=== PATIENT | male | born 1945 | race Caucasian/White ===

== ENCOUNTER 2024-04-22 18:47 | Inpatient (IN) | payer OTHER, MEDICARE ==
[2024-04-22 19:54] VITALS: BMI 29.2
[2024-04-22] MEDS ORDERED: Ondansetron ODT 4 MG TAB PO PRN (21:20)
[2024-04-22] MEDS ORDERED: Calcium Carbonate 500 MG ChewTAB PO PRN (21:20)
[2024-04-22] MEDS ORDERED: Ondansetron PF 4 MG/2 ML Vial IVP PRN (21:20)
[2024-04-22] MEDS ORDERED: Acetaminophen 325 MG TAB PO PRN (21:20)
[2024-04-22] MEDS ORDERED: Senokot S 8.6-50 MG TAB PO PRN (21:20)
[2024-04-22] MEDS ORDERED: Acetaminophen 650 MG Suppository PR PRN (21:20)
[2024-04-22] MEDS: Sodium Chloride 0.9% 1,000 ML IV SCH (22:57)
[2024-04-23] MEDS: Levothyroxine Sodium 25 MCG TAB PO SCH (06:43)
[2024-04-23 07:34] LABS: #Basophils Less than 0.03 10x3/uL (0.0-0.2); %Basophils 0.2 % (0.0-1.0); %Eosinophils 4.1 % (0.0-10.0); %Lymphocytes 16.6 % (21.0-51.0); %Monocytes 11.4 % (0.0-10.0); %Neutrophils 67.2 % (42.0-75.0); Hematocrit 38.6 % (42.0-52.0); Hemoglobin 13.1 g/dL (14.0-18.0); Mean Corpuscular HGB CONC 33.9 g/dL (32.0-36.0); Mean Corpuscular Hemoglobin 29.3 pg (27.0-31.0); Mean Corpuscular Volume 86.4 fL (78.0-98.0); Mean Platelet Volume 11.6 fL (7.4-10.4); Platelet Count 185 10x3/uL (130-400); RBC Distribution Width 13.9 % (11.5-14.5); Red Blood Cell (RBC) Count 4.47 mill/uL (4.70-6.10)
[2024-04-23 07:54] LABS: Anion Gap 17 mmol/L (10-20); BUN (Urea Nitrogen) 84 mg/dL (8.4-25.7); Calc. Creatinine Clearance 23 mL/min (70-130); Calcium 8.2 mg/dL (7.8-10.44); Carbon Dioxide 15 mmol/L (23-31); Chloride 114 mmol/L (98-107); Estimated GFR 17; Glucose 92 mg/dL (83-110); Potassium 3.7 mmol/L (3.5-5.1); Sodium 142 mmol/L (136-145)
[2024-04-23] MEDS: Aspirin 81 mg Enteric Coated Tablet PO SCH (09:22)
[2024-04-23] MEDS: Clopidogrel Bisulfate 75 MG TAB PO SCH (09:22)
[2024-04-23] MEDS: Atenolol 25 MG TAB PO SCH (09:23)
[2024-04-23] MEDS: Famotidine 20 MG TAB PO SCH (09:23)
[2024-04-23] MEDS: Sodium Bicarbonate Tab 325 MG TAB PO SCH (09:23)
[2024-04-23] MEDS: Atorvastatin Calcium 20 MG TAB PO SCH (09:23)
[2024-04-23] MEDS: Sodium Bicarbonate 150 MEQ in Sterile Water 1,000 ML IV SCH (10:51)
[2024-04-23 12:20] LABS: Creatinine, Urine 75.98 mg/dL (63-166)
[2024-04-23 14:32] VITALS: BMI 29.2
[2024-04-23] MEDS: cefTRIAXone\\ROCEPHIN 1 GM in Sodium Chloride 0.9% 100 ML IVPB SCH (16:12)
[2024-04-23] MEDS: Tamsulosin HCl 0.4 MG CAP PO SCH (20:15)
[2024-04-24 06:21] LABS: #Basophils Less than 0.03 10x3/uL (0.0-0.2); %Basophils 0.3 % (0.0-1.0); %Eosinophils 4.6 % (0.0-10.0); %Lymphocytes 20.4 % (21.0-51.0); %Monocytes 10.6 % (0.0-10.0); %Neutrophils 63.5 % (42.0-75.0); Hematocrit 36.4 % (42.0-52.0); Hemoglobin 12.2 g/dL (14.0-18.0); Mean Corpuscular HGB CONC 33.5 g/dL (32.0-36.0); Mean Corpuscular Volume 86.5 fL (78.0-98.0); Mean Platelet Volume 10.8 fL (7.4-10.4); Platelet Count 197 10x3/uL (130-400); RBC Distribution Width 13.9 % (11.5-14.5); Red Blood Cell (RBC) Count 4.21 mill/uL (4.70-6.10)
[2024-04-24 06:41] LABS: Albumin 2.1 g/dL (3.4-4.8); Anion Gap 11 mmol/L (10-20); BUN (Urea Nitrogen) 38 mg/dL (8.4-25.7); BUN/Creatinine Ratio 31.15; Calc. Creatinine Clearance 64 mL/min (70-130); Calcium 7.9 mg/dL (7.8-10.44); Carbon Dioxide 28 mmol/L (23-31); Chloride 108 mmol/L (98-107); Estimated GFR 60; Glucose 101 mg/dL (83-110); Phosphorus 2.1 mg/dL (2.3-4.7); Potassium 3.5 mmol/L (3.5-5.1); Sodium 143 mmol/L (136-145)
[2024-04-24] MEDS: Famotidine 20 MG TAB PO SCH (09:13)
[2024-04-24] MEDS: PHOS-NAK 1 PKT PACK PO SCH (11:11)
[2024-04-24 15:20] VITALS: BP 131/65; TEMP 98.3
== END 2024-04-24 15:08 | disposition home or self-care (01) | DRG 683 ==
LOC: T4-A 18:47
PROVIDERS: ADMIT Family Medicine; ATTEND Hospitalist
DX: N17.9 Acute kidney failure, unspecified (principal); E87.20 Acidosis, unspecified; R33.9 Retention of urine, unspecified; I10 Essential (primary) hypertension; I25.10 Atherosclerotic heart disease of native coronary artery without angina pectoris; Z79.82 Long term (current) use of aspirin; Z79.899 Other long term (current) drug therapy; I25.2 Old myocardial infarction; E78.5 Hyperlipidemia, unspecified; E03.9 Hypothyroidism, unspecified; Z90.49 Acquired absence of other specified parts of digestive tract; Z95.1 Presence of aortocoronary bypass graft; Z87.891 Personal history of nicotine dependence; N32.0 Bladder-neck obstruction; E83.39 Other disorders of phosphorus metabolism; N13.30 Unspecified hydronephrosis; N28.1 Cyst of kidney, acquired
CPT/HCPCS: 36415; 76770; 80048; 80069; 82570; 84156; 85025; A4217; J0696; J7030

== ENCOUNTER 2024-07-08 13:27 | Outpatient (CLI) | payer OTHER ==
[2024-07-08 15:06] LABS: #Basophils 0.04 10x3/uL (0.0-0.2); %Basophils 0.5 % (0.0-1.0); %Lymphocytes 23.4 % (21.0-51.0); %Monocytes 8.8 % (0.0-10.0); %Neutrophils 63.2 % (42.0-75.0); Hematocrit 43.8 % (42.0-52.0); Hemoglobin 14.2 g/dL (14.0-18.0); Mean Corpuscular HGB CONC 32.4 g/dL (32.0-36.0); Mean Corpuscular Hemoglobin 28.2 pg (27.0-31.0); Mean Corpuscular Volume 86.9 fL (78.0-98.0); Mean Platelet Volume 10.6 fL (7.4-10.4); Platelet Count 269 10x3/uL (130-400); Red Blood Cell (RBC) Count 5.04 mill/uL (4.70-6.10)
[2024-07-08 15:20] LABS: PTT 28.2 sec (22.9-36.1); Prothrombin Time 13.2 sec (12.0-14.7)
[2024-07-08 15:33] LABS: Anion Gap 10 mmol/L (10-20); BUN (Urea Nitrogen) 15 mg/dL (8.4-25.7); Calc. Creatinine Clearance 0 mL/min (70-130); Carbon Dioxide 24 mmol/L (23-31); Chloride 106 mmol/L (98-107); Estimated GFR 64; Glucose 88 mg/dL (83-110); Potassium 3.9 mmol/L (3.5-5.1); Sodium 136 mmol/L (136-145)
== END 2024-07-08 13:28 | disposition home or self-care (01) ==
LOC: LABBT 13:27
PROVIDERS: ATTEND Urology
DX: Z01.818 Encounter for other preprocedural examination (principal); C67.8 Malignant neoplasm of overlapping sites of bladder
CPT/HCPCS: 80048; 85025; 85610; 85730; 87086

== ENCOUNTER 2024-07-19 07:16 | Day surgery (SDC) | payer OTHER ==
[2024-07-08 14:10] VITALS: BMI 27.8
[~2024-07-19 07:16] MED LIST: mitoMYcin 40 MG in Sterile Water 20 ML I-VESIC SCH
[2024-07-19] MEDS ORDERED: mitoMYcin 40 MG in Sterile Water 20 ML I-VESIC SCH (07:45)
[2024-07-19] MEDS ORDERED: PROPOFOL 20 ML ONE (11:43)
[2024-07-19] MEDS ORDERED: fentaNYL PF 100 MCG/2 ML SYRINGE ONE ×2 (11:43→13:23)
[2024-07-19] MEDS ORDERED: Rocuronium Bromide 10 MG/ML (10ML VIAL) ONE (11:44)
[2024-07-19] MEDS ORDERED: Lidocaine 2% PF 5 ML VIAL ONE (11:44)
[2024-07-19] MEDS ORDERED: LevoFLOXacin D5W 500 mg (100 mL) BAG ONE (12:15)
[2024-07-19] MEDS ORDERED: Ondansetron PF 4 MG/2 ML Vial ONE (12:41)
[2024-07-19] MEDS ORDERED: Dexamethasone 4 mg/ml Vial ONE (12:41)
[2024-07-19] MEDS ORDERED: SUGAMMADEX SODIUM 200 MG/2 ML VIAL ONE (12:42)
[2024-07-19] MEDS ORDERED: ePHEDrine Sulfate 50 MG/10 ML VIAL ONE (12:47)
[2024-07-19] MEDS ORDERED: diphenhydrAMINE 50 MG/ML VIAL ONE (13:40)
[2024-07-19] MEDS ORDERED: Phenazopyridine HCl 100 MG TAB ONE (15:42)
[2024-07-19] MEDS ORDERED: Oxybutynin 5 MG TAB ONE (16:25)
== END 2024-07-19 17:05 | disposition home or self-care (01) ==
LOC: SDC 07:16
PROVIDERS: ATTEND Urology
PROC: 0VT08ZZ Resection of Prostate, Via Natural or Artificial Opening Endoscopic (ICD-10-PCS; principal; 2024-07-19)
PROC: 0TBB8ZZ Excision of Bladder, Via Natural or Artificial Opening Endoscopic (ICD-10-PCS; 2024-07-19)
DX: C67.8 Malignant neoplasm of overlapping sites of bladder (principal); D07.5 Carcinoma in situ of prostate; N40.1 Benign prostatic hyperplasia with lower urinary tract symptoms; R33.8 Other retention of urine; I25.10 Atherosclerotic heart disease of native coronary artery without angina pectoris; I25.2 Old myocardial infarction; I10 Essential (primary) hypertension; E78.5 Hyperlipidemia, unspecified; E03.9 Hypothyroidism, unspecified; R33.9 Retention of urine, unspecified; Z90.49 Acquired absence of other specified parts of digestive tract; Z98.890 Other specified postprocedural states; Z95.1 Presence of aortocoronary bypass graft; Z87.891 Personal history of nicotine dependence; Z79.899 Other long term (current) drug therapy
CPT/HCPCS: 52240; 52601; 82365; A4333; J1100; J1200; J1956; J2405; J2704; J9280; 88300; 88305; 88307

== ENCOUNTER 2024-10-10 06:43 | Day surgery (SDC) | payer OTHER ==
[2024-09-26 11:27] VITALS: BMI 29.2
[2024-10-10] MEDS ORDERED: LevoFLOXacin 500 mg/D5W 500 MG in Premix 1 BAG IVPB SCH (08:00)
[2024-10-10] MEDS ORDERED: LevoFLOXacin D5W 500 mg (100 mL) BAG ONE (08:31)
[2024-10-10] MEDS ORDERED: Rocuronium Bromide 10 MG/ML (10ML VIAL) ONE (09:00)
[2024-10-10] MEDS ORDERED: fentaNYL PF 100 MCG/2 ML SYRINGE ONE (09:00)
[2024-10-10] MEDS ORDERED: PROPOFOL 20 ML ONE (09:01)
[2024-10-10] MEDS ORDERED: cefTRIAXone (ROCEPHIN) 1 GM VIAL ONE (10:17)
[2024-10-10] MEDS ORDERED: Sodium Chloride 0.9% 100 ML ONE (10:18)
[2024-10-10] MEDS ORDERED: Lidocaine 1% PF 5 ML VIAL ONE (11:14)
[2024-10-10] MEDS ORDERED: Ondansetron PF 4 MG/2 ML Vial ONE ×2 (11:14→11:36)
[2024-10-10] MEDS ORDERED: Dexamethasone 4 mg/ml Vial ONE (11:14)
[2024-10-10] MEDS ORDERED: Phenazopyridine HCl 100 MG TAB ONE (12:17)
[2024-10-10] MEDS ORDERED: Oxybutynin 5 MG TAB ONE (12:18)
== END 2024-10-10 14:25 | disposition home or self-care (01) ==
LOC: SDC 06:43
PROVIDERS: ATTEND Urology
PROC: 0VT08ZZ Resection of Prostate, Via Natural or Artificial Opening Endoscopic (ICD-10-PCS; principal; 2024-10-10)
PROC: 0TBB8ZZ Excision of Bladder, Via Natural or Artificial Opening Endoscopic (ICD-10-PCS; 2024-10-10)
DX: C67.3 Malignant neoplasm of anterior wall of bladder (principal); N40.1 Benign prostatic hyperplasia with lower urinary tract symptoms; N32.89 Other specified disorders of bladder; M19.90 Unspecified osteoarthritis, unspecified site; I10 Essential (primary) hypertension; E78.5 Hyperlipidemia, unspecified; I25.10 Atherosclerotic heart disease of native coronary artery without angina pectoris; E03.9 Hypothyroidism, unspecified; N40.0 Benign prostatic hyperplasia without lower urinary tract symptoms; I25.2 Old myocardial infarction; Z95.1 Presence of aortocoronary bypass graft; Z90.49 Acquired absence of other specified parts of digestive tract; Z98.890 Other specified postprocedural states
CPT/HCPCS: 52240; 52601; J0696; J1100; J1956; J2405; J2704; 88307; 88341; 88342

== ENCOUNTER 2025-04-21 11:00 | Outpatient (CLI) | payer OTHER | END 2025-04-21 11:01 | disposition home or self-care (01) | LOC: PET 11:00 | PROVIDERS: ATTEND Internal Medicine Hematology & Oncology | DX: C67.0 Malignant neoplasm of trigone of bladder (principal); R59.0 Localized enlarged lymph nodes | CPT/HCPCS: 78815; A9552 ==

== ENCOUNTER 2025-07-28 10:26 | Day surgery (SDC) | payer OTHER ==
[2025-07-28] MEDS ORDERED: Magnesium Sulfate 4 GM in Sodium Chloride 0.9% 250 ML 250 ML IVPB SCH (11:00)
[2025-07-28] MEDS: Magnesium Sulfate In Water 4 GM in Premix 1 BAG IVPB SCH (11:06)
[2025-07-28 12:00] VITALS: BP 121/59; TEMP 97.5
== END 2025-07-28 13:20 | disposition home or self-care (01) ==
LOC: ONC/OP 10:26
PROVIDERS: ATTEND Internal Medicine Hematology & Oncology
DX: E83.42 Hypomagnesemia (principal); C67.0 Malignant neoplasm of trigone of bladder; Z79.899 Other long term (current) drug therapy
CPT/HCPCS: 96365; 96366; J1642; J3475; J7050